=== PATIENT | female | born 1980 | race Caucasian/White ===

== ENCOUNTER 2017-06-23 14:50 | Emergency (ER) | payer MEDICAID, OTHER ==
[2017-06-23 15:02] VITALS: RESP 18; TEMP 98.8
--- NOTE | 2017-06-23 15:22 | EDPHY ---
HPI/HX/ROS/PE/MDM Narrative: CHIEF COMPLAINT: Weakness, sore throat, headache, low back pain HISTORY OF PRESENT ILLNESS: The patient is a 36 y/o female with a history of lyme disease and C. diff, complaining of weakness, a sore throat, headache, and low back pain 5 days after stopping Doxycycline. She was diagnosed with a UTI 3 weeks ago and prescribed Doxycycline. Her symptoms improved and she did not finish the Doxycycline prescription. Her urine cultures grew Raoultella orinthinolytica. Her headache has been consistent for 3 weeks. The back pain started suddenly yesterday and she states that her "kidneys and ovaries hurt". The burning sensation while urinating is not as intense as when she was initially diagnosed with a UTI. She is also complaining of an odd odor to her urine and yellow vaginal discharge. In addition to her symptoms she is nauseous and has diarrhea. She has a new sexual partner and they have not used protection for the last several times. She is concerned about having a vaginal, urinary, or throat infection as well as developing C. diff again. Denies history of kidney stones. No fever, chills, chest pain, shortness of breath, palpitations, vomiting, lightheadedness. REVIEW OF SYSTEMS: Aside from elements discussed in the HPI, a comprehensive 10-point review of systems was reviewed and is negative. PAST MEDICAL HISTORY: Lyme disease, C. diff SOCIAL HISTORY: Single, lives in [place], unemployed VITAL SIGNS: Reviewed by me GENERAL: Tearful, well-developed, well-nourished, resting comfortably in no respiratory distress. HEENT: Atraumatic. Eyes: No icterus, no injection. Mouth: moist mucous membranes. No erythema or lesions. Neck: supple with no adenopathy. LUNGS: Clear to auscultation bilaterally, no wheezes, rhonchi or rales. CARDIAC: Regular rate and rhythm, no rubs, murmurs or gallops. ABDOMEN: Mild lower abdominal pain (right greater than left), soft, nondistended , bowel sounds normal. BACK: No CVA tenderness. PELVIC: External genitalia normal, thin white vaginal discharge present in vaginal vault, cervix not visualized secondary to patient's discomfort with speculum. No CMT on bimanual. No adnexal tenderness. EXTREMITIES: No trauma. No edema. Range of motion is normal throughout. NEURO: Alert and oriented, grossly nonfocal. SKIN: Warm and dry, no rash. PSYCHIATRIC: Normal mentation, no agitation. Portions of this note were transcribed by a manager medical writing. I personally performed a history, physical exam, medical decision making, and confirmed accuracy of information the transcribed note. ED Course: The patient is a 36 y/o female with a history of lyme disease and C. diff, presenting with low back pain, a sore throat and a headache. Her symptoms began after stopping Doxycycline which she was prescribed for a UTI. On exam, she has mild abdominal tenderness that is greater on the right. During the exam she states "I know I have an infection but I do not want to take antibiotics as they might kill me". She is denying blood work at this time. Labs including strep throat, UA, vaginal culture, chlamydia and gonorrhea tests ordered. 1L IV NS administered. 1600: Reassessed patient and preformed a pelvic exam. Trichomonas, bacterial vaginosis, bacterial cultures sent. 1704: 15mg IV Toradol administered. 1751: Reassessed patient and discussed normal laboratory findings. She is still having a mild headache and mild low back pain after IVF and Toradol. She states , "I know I have an infection, but I am terrified of taking antibiotics because I think they will kill me". I held a long discussion with the patient. Her strep screen is negative. Her urine does not appear to have an infection currently, and she had taken 4 days of the doxycycline. BV and trich and yeast tests are negative. We discussed empiric treatment for STD's but patient declined. She is frustrated that I have not found a source of her infection, although she has not had fever has not WBC and looks well on exam. I have prescribed her Keflex in case her urine cultures result positive, and Percocet for her back pain. Return precautions provided; patient is comfortable with this plan. MDM: Diff dx considered included urethritis, urinary tract infection, STD, vaginal infection, PID, viral infection, strep throat. - Data Points Laboratory Results: Laboratory Results 06/23/17 16:40 06/23/17 16:40 Medications Given: Discontinued Medications Acetaminophen (Tylenol) 1,000 mg PO EDNOW ONE Stop: 06/23/17 18:07 Last Admin: 06/23/17 18:54 Dose: Not Given Sodium Chloride (Ns) 1,000 mls @ 0 mls/hr IV ONCE ONE; Wide Open PRN Reason: Protocol Stop: 06/23/17 15:48 Last Admin: 06/23/17 16:40 Dose: 1,000 mls Ketorolac Tromethamine (Toradol) 15 mg IVP EDNOW ONE Stop: 06/23/17 17:04 Last Admin: 06/23/17 17:14 Dose: 15 mg Oxycodone/Acetaminophen (Percocet 5/325mg Prepack#4) 1 btl TAKEHOME EDNOW ONE Stop: 06/23/17 18:38 Last Admin: 06/23/17 18:45 Dose: 1 btl General Initial Vital Signs: Initial Vital Signs Temperature (C) 37.1 C 06/23/17 14:58 Heart Rate 92 06/23/17 14:58 Respiratory Rate 18 06/23/17 14:58 Blood Pressure 110/77 06/23/17 14:58 O2 Sat (%) 98 06/23/17 14:58 O2 Delivery Mode Room Air Allergies/Adverse Reactions: No Known Allergies Allergy (Verified 06/29/17 13:03) Home Medications: Medication Instructions Recorded Ondansetron Odt [Zofran Odt 4 mg 4 mg PO Q4PRN PRN #10 tab 06/29/17 (*)] Departure - Departure Disposition: Home, Routine, Self-Care Clinical Impression: Back pain Qualifiers: Back pain location: low back pain Chronicity: unspecified Back pain laterality : unspecified Sciatica presence: without sciatica Qualified Code(s): M54.5 - Low back pain Headache Qualifiers: Headache type: unspecified Headache chronicity pattern: acute headache Intractability: not intractable Qualified Code(s): R51 - Headache Condition: Good Instructions: Oxycodone/Acetaminophen (By mouth), Acute Headache (ED) Additional Instructions: You can call the emergency department in 2 days for the results of your cultures. For your pain I recommend taking 600mg Ibuprofen 3 times a day with food. It will be most effective if you take it 2-3 days in a row. Take Percocet as prescribed for severe pain. Take Keflex if your urine comes back positive for a UTI. Follow up with your primary care provider in the next week for unimproved symptoms. Follow up with [facility] so that they can follow you regarding C. diff while taking an antibiotic. Follow up with your Lyme specialist in the next week regarding your symptoms. Return to the emergency room if you experience chest pain, shortness of breath, vomiting, abdominal pain, fevers or other worsening of your symptoms. Referrals: [facility] (ED,. [Edm Groups for Call Sched] - As per Instructions [facility],. [Clinic] - As per Instructions Leticia Gabriel MD [[facility] [place] Provider] - As per Instructions Report Scribed for: Corrie Carranza Report Scribed by: Fouzia Lockwood Date of Report: 06/23/17 Time of Report: 15:22
--- NOTE | 2017-06-23 15:26 | EDPHY ---
H & P Stated Complaint: Wants testing for strep, UTI, vag infection Time Seen by Provider: 06/23/17 15:17 - Personal History LMP (Females 10-55): 22-28 Days Ago Current Tetanus Diphtheria and Acellular Pertussis (TDAP): Yes - Medical/Surgical History Other PMH: lyme disease. Cdiff - Social History Smoking Status: Never smoked Constitutional: Initial Vital Signs Temperature (C) 37.1 C 06/23/17 14:58 Heart Rate 92 06/23/17 14:58 Respiratory Rate 18 06/23/17 14:58 Blood Pressure 110/77 06/23/17 14:58 O2 Sat (%) 98 06/23/17 14:58 O2 Delivery Mode Room Air Allergies/Adverse Reactions: No Known Allergies Allergy (Unverified 06/23/17 15:04) Home Medications: Medication Instructions Recorded NK [No Known Home Meds] 06/23/17
[2017-06-23] MEDS ORDERED: NS 1,000 ML IV ONE (15:47)
[2017-06-23 16:52] LABS: PLATELET COUNT 181 10^3/uL (150-400)
[2017-06-23] MEDS ORDERED: KETOROLAC 30 MG/1 ML SDV IVP ONE (17:03)
[2017-06-23] MEDS ORDERED: ACETAMINOPHEN 500 MG TAB PO ONE (18:06)
[2017-06-23 18:32] VITALS: BP 114/64; PULSE 72; O2SAT 96
[2017-06-23] MEDS ORDERED: OXYCODONE/APAP 5/325MG PREPACK#4 BTL TAKEHOME ONE (18:37)
[2017-06-24 12:44] LABS: GC AMPLIFICATION GENPROBE NEGATIVE (NEGATIVE)
== END 2017-06-23 18:50 | disposition home or self-care (01) ==
DX: M54.5 Low back pain (principal); R51 Headache; E86.9 Volume depletion, unspecified
CPT/HCPCS: 96374; J1885

== ENCOUNTER 2017-06-29 12:59 | Emergency (ER) | payer OTHER ==
[2017-06-29 13:06] VITALS: RESP 18; O2SAT 97
[2017-06-29] MEDS ORDERED: FAMOTIDINE 20 MG/NACL 50 ML IV ONE (15:10)
[2017-06-29] MEDS ORDERED: ONDANSETRON 4 MG/2 ML VIAL IVP ONE (15:10)
[2017-06-29] MEDS ORDERED: NS 1,000 ML IV ONE (15:10)
[2017-06-29] MEDS ORDERED: MAG HYDROX/AL HYDROX/SIMETH 30 ML UDCUP PO ONE (15:10)
--- NOTE | 2017-06-29 15:19 | EDPHY ---
H & P Time Seen by Provider: 06/29/17 15:00 HPI/ROS: HPI Abdominal pain. 36-year-old female by private vehicle with friend. This patient was seen in our emergency department with complaint of flu-like symptoms and lower back pain on June 23 of this year. She had an extensive workup including blood work, urine studies, pelvic exam and evaluation for STI. All of this was unremarkable. She returns to the emergency department stating that she is still having pain but she now describes this as epigastric abdominal pain. She reports this has been ongoing for the last week. She describes it as sharp and sometimes burning and crampy. She describes having a lot of gas and gurgling in her stomach. She is adamant that she needs antibiotics to treat this pain. She has had this pain in the past and states that she was given antibiotics and this cured her pain. She has a previous history of Clostridium difficile toxicity. Her last meal was lunch at about 12 noon earlier today. She has not had any bloody or melenic stool. No diarrhea. She states she has had some mild associated nausea but no vomiting. ROS: Constitutional: No fever, no chills. No weakness. Eyes: No discharge. No changes in vision. ENT: No sore throat. No nasal congestion or rhinorrhea. Respiratory: No cough. No shortness of breath. Cardiac: No chest pain, no palpitations. Gastrointestinal: As above, no vomiting, no diarrhea. Genitourinary: No hematuria. No dysuria or increased frequency with urination. Musculoskeletal: No back pain. No neck pain. No myalgias or arthralgias. Skin: No rashes. Neurological: No headache. No focal weakness or altered sensation. Past medical history: As above. Lyme disease and C diff toxicity. Social history: Nonsmoker. No alcohol. Here with friend. Physical Exam: General Appearance: Alert, no distress. Anxious. This patient is responding to questions appropriately and in full sentences. This patient appears well- hydrated and well-nourished. Eyes: Pupils equal and round no pallor or injection. No lid edema, erythema or injection. Respiratory: There are no retractions, lungs are clear to auscultation with good air movement bilaterally. Cardiovascular: Regular rate and rhythm. No murmur. Gastrointestinal: Abdomen is soft on deep palpation throughout and nontender, no masses, bowel sounds normal. No focal tenderness at McBurney's point. No Barajas sign. Neurological: Motor sensory function is grossly intact. Cranial nerves are normal. Gait is normal. Skin: Warm and dry, no rashes. Musculoskeletal: No CVA tenderness on palpation bilaterally. Extremities are symmetrical. All joints range without pain or impingement. Psychiatric: No agitation. No depression. Database: EKG: Imaging: Procedures: Emergency department course: Vital signs reviewed and are normal. IV was placed, she will initially be given a GI cocktail, 4 mg of IV Zofran and 20 mg of IV Pepcid. She will also receive a GI cocktail. She has a benign abdomen on exam. She is very demanding that she needs antibiotics to treat her pain. I explained that I would be happy to give her antibiotics if there is good reason to do this. Right upper quadrant ultrasound was ordered on this patient. Patient refused this study at 3:40 p.m.. She stated that she did not want to pay for it. 4:40 p.m., patient re-evaluated. Results of her urinalysis and blood work discussed. Repeat abdominal exam she is soft and without apparent tenderness on palpation. She is demanding that she be treated with an antibiotic. I do not think this is warranted given her presentation to the emergency department today. She asked that I speak with her primary care physician about this. I told her I gladly would. I explained that if her primary care physician felt that and antibiotic was required for her treatment that was his or her decision to make. The patient was unable to provide us with the phone number for her primary care physician. We were able to contact the office of this physician. This was done by our nursing staff. We left a message for a call back but but never received a call back. I think that this patient is safe for discharge. She has a follow up with this primary care physician on Thursday she reports. Return to emergency department precautions were reviewed with her. All of her questions were answered. She was discharged in good condition. Differential Diagnosis: The differential diagnosis on this patient includes but is not limited to gastritis, anxiety reaction, psychosomatic reaction. Pancreatitis, cholecystitis, ulcerative gastritis, perforated peptic ulcer, colitis, unlikely. This represents a partial list of diagnoses considered. These considerations are based on history, physical exam, past history, reassessment and diagnostic testing. Smoking Status: Never smoked Constitutional: Initial Vital Signs Temperature (C) 36.7 C 06/29/17 13:04 Heart Rate 92 06/29/17 13:04 Respiratory Rate 18 06/29/17 13:04 Blood Pressure 122/88 H 06/29/17 13:04 O2 Sat (%) 97 06/29/17 13:04 O2 Delivery Mode Room Air Allergies/Adverse Reactions: No Known Allergies Allergy (Verified 06/29/17 13:03) Home Medications: Medication Instructions Recorded Ondansetron Odt [Zofran Odt 4 mg 4 mg PO Q4PRN PRN #10 tab 06/29/17 (*)] Medical Decision Making - Data Points Laboratory Results: Laboratory Results 06/29/17 13:10 06/29/17 13:10 Medications Given: Discontinued Medications Al Hydroxide/Mg Hydroxide (Maalox Susp) 30 ml PO ONCE ONE Stop: 06/29/17 15:11 Last Admin: 06/29/17 15:21 Dose: 30 ml Sodium Chloride (Ns) 1,000 mls @ 0 mls/hr IV EDNOW ONE; Wide Open PRN Reason: Protocol Stop: 06/29/17 15:11 Last Admin: 06/29/17 15:22 Dose: 1,000 mls Famotidine/Sodium Chloride (Pepcid 20 Mg (Premix)) 50 mls @ 200 mls/hr IV EDNOW ONE Stop: 06/29/17 15:24 Last Admin: 06/29/17 15:21 Dose: 50 mls Ondansetron HCl (Zofran) 4 mg IVP EDNOW ONE Stop: 06/29/17 15:11 Last Admin: 06/29/17 15:21 Dose: 4 mg Departure - Departure Disposition: Home, Routine, Self-Care Clinical Impression: Abdominal pain Condition: Good Instructions: Abdominal Pain (ED) Additional Instructions: Read and follow provided instructions. Follow-up with your primary care physician as your scheduled on Thursday for re -evaluation and further management. Avoid spicy and fatty foods. Take medication as prescribed for nausea. Return to the emergency department for worsening abdominal pain, vomiting and inability to keep fluids down, fever or other serious concerns. Referrals: J[facility] UNGER [Other] - As per Instructions Prescriptions: Ondansetron Odt [Zofran Odt 4 mg (*)] 4 mg PO Q4PRN PRN #10 tab PRN Reason: For Nausea & Vomiting
[2017-06-29 15:25] LABS: PLATELET COUNT 136 10^3/uL (150-400)
[2017-06-29 17:29] VITALS: BP 129/102; PULSE 88; TEMP 97.9
== END 2017-06-29 17:42 | disposition home or self-care (01) ==
PROC: 3E0337Z Introduction of Electrolytic and Water Balance Substance into Peripheral Vein, Percutaneous Approach (ICD-10-PCS; principal; 2017-06-29)
DX: R10.9 Unspecified abdominal pain (principal); E86.9 Volume depletion, unspecified
CPT/HCPCS: 96374; J2405